=== PATIENT | female | born 1950 | race Hispanic/Latino ===

== ENCOUNTER → 2022-11-21 14:31 | Outpatient (CLI) | payer OTHER, SELFPAY ==
--- NOTE | 2022-11-21 14:36 | DI.CT.S_ITS ---
PROCEDURE: CT SINUS SCREEN WO CON INDICATIONS: CHRONIC PANSINUSITIS,FACIAL PAIN TECHNIQUE: Noncontrast 3.0 mm axial images acquired from the frontal sinuses to the mid-sella, with coronal and sagittal reformats. For radiation dose reduction, the following was used: automated exposure control, adjustment of mA and/or kV according to patient size. COMPARISON: None. FINDINGS: Image quality: Excellent. Maxillary Sinuses: No bony remodeling or destruction. There is near complete opacification seen involving the left maxillary sinus. Remodeling change can be seen, with thickening along the lateral aspect of the left maxillary sinus. Ethmoid Air Cells: No bony remodeling or destruction. Sinuses are clear. Sphenoid Sinuses: No bony remodeling or destruction. Sinuses are clear. Frontal Sinuses: No bony remodeling or destruction. Sinuses are clear. Ostiomeatal Complexes: Ostiomeatal complexes are patent, yet they are constitutionally narrowed, with further narrowing of the left ostiomeatal complex from mucosal thickening. No definite Zoe cells are seen. Miscellaneous: Visualized intra-orbital contents are normal. There are bilateral christopher bullosa is seen, right larger than left. There is mild leftward nasal septal deviation. Incidental note is made of hyperostosis frontalis. This is not considered to be pathologic in a woman of this age. IMPRESSION: Focal right maxillary sinus disease, with near complete opacification. Remodeling change is seen, which is consistent chronic sinusitis. Constitutionally narrowed ostiomeatal complexes, with the left ostiomeatal complex further narrowed by soft tissue. Bilateral christopher bullosa can be seen, with mild leftward nasal septal deviation. Dictated by: Jhony Mcwilliams M.D. on 11/21/2022 at 14:33 Approved by: Jhony Mcwilliams M.D. on 11/21/2022 at 14:34
== END ==
PROVIDERS: PCP Student in an Organized Health Care Education/Training Program; Referring Provider Otolaryngology; Visit Provider Otolaryngology
DX: J32.4 Chronic pansinusitis (principal); R51.9 Headache, unspecified; J34.2 Deviated nasal septum; J34.3 Hypertrophy of nasal turbinates
CPT/HCPCS: 70486